=== PATIENT | male | born 1965 | race Caucasian/White ===

== ENCOUNTER 2024-09-04 15:11 | Inpatient (IN) | payer OTHER ==
[~2024-09-04] VITALS: Ht 177.8 cm; Wt 80.7 kg
[2024-09-04 17:02] LABS: BASOPHILS % 0.3 % (0.0-2.0); EOSINOPHILS % 1.8 % (0.0-5.0); HEMATOCRIT. 47.1 % (42.0-52.0); LYMPHOCYTES % 17.7 % (20.0-50.0); MEAN CORPUSCULAR VOLUME 91.4 fL (80.0-94.0); MEAN PLATELET VOLUME 8.3 fl (7.4-10.4); MONOCYTES % 9.4 % (2.0-8.0); NEUTROPHILS % 70.8 % (40.0-76.0); PLATELET 256 x1000/uL (130-400); RED BLOOD CELL COUNT 5.15 mill/uL (4.7-6.1); RED CELL DISTRIBUTION WIDTH 13.4 % (11.6-14.6); WHITE BLOOD COUNT 8.2 x1000/uL (4.5-11.0)
[2024-09-04 17:13] LABS: PROTHROMBIN TIME 10.9 sec (9.6-11.0)
[2024-09-04 17:28] LABS: CHLORIDE 108 mEq/L (98-107); POTASSIUM 3.4 mEq/L (3.5-5.1); SODIUM 141 mEq/L (136-145)
[2024-09-04 17:29] LABS: CARBON DIOXIDE 25 mEq/L (21-32)
[2024-09-04 17:30] LABS: CALCIUM 9.3 mg/dL (8.7-10.4)
[2024-09-04 17:34] LABS: GLUCOSE 132 mg/dL (70-105)
[2024-09-04 17:35] LABS: UREA NITROGEN BLOOD 13 mg/dL (9-23)
[2024-09-04 17:41] LABS: ETHANOL BLOOD < 10 mg/dL (<10)
[2024-09-04 20:38] VITALS: BP 147/62; PULSE 60; RESP 16; TEMP 36.50292; O2SAT 98
[2024-09-05] VITALS: BP 122/67; PULSE 54; RESP 18; TEMP 36.22512; O2SAT 94
[2024-09-05 01:14] VITALS: BP 142/78; PULSE 80; RESP 20; TEMP 36.696
[2024-09-05 04:00] VITALS: BP 119/70; PULSE 59; RESP 20; TEMP 36.22512; O2SAT 96
[2024-09-05 08:00] VITALS: BP 124/67; PULSE 60; RESP 20; TEMP 36.6696; O2SAT 94
[2024-09-05 12:00] VITALS: BP 100/71; PULSE 56; RESP 18; TEMP 36.44736; O2SAT 95
[2024-09-06 06:13] LABS: THYROID STIMULATING HORMONE 1.08 uIU/mL (0.55-4.78)
[2024-09-06 06:14] LABS: ALANINE AMINOTRANSFERASE 29 IU/L (10-49); ALBUMIN 3.9 g/dL (3.2-4.8); ASPARTATE AMINOTRANSFERASE 18 IU/L (<34); BILIRUBIN TOTAL 0.4 mg/dL (0.1-1.0); PROTEIN TOTAL 7.2 g/dL (6.0-8.3)
[2024-09-06 06:16] LABS: BILIRUBIN DIRECT < 0.1 mg/dL (<=3.0)
[2024-09-06 08:00] VITALS: BP 118/69; PULSE 84; RESP 18; TEMP 36.6696; O2SAT 97
[2024-09-06 12:00] VITALS: BP 118/61; PULSE 64; RESP 17; TEMP 36.114; O2SAT 97
[2024-09-06] MEDS: INFLUENZA VACCINE 05/PF 0.5 ML SYRINGE IM ONE (15:10)
[2024-09-06 16:00] VITALS: BP 114/79; PULSE 62; RESP 18; TEMP 36.114; TEMP 36.11400; O2SAT 97
[2024-09-06 16:40] LABS: VITAMIN B12 SERUM 596 pg/mL (211-911)
[2024-09-06] MEDS ORDERED: GADOTERATE MEGLUMINE 5 MMOL/10 ML VIAL IV ONE (18:04)
[2024-09-06 21:29] VITALS: BP 114/66; PULSE 60; TEMP 98.1; O2SAT 100
== END 2024-09-06 22:00 | disposition home or self-care (01) | DRG 123 ==
LOC: ER 15:11 → 5WST 17:52 → EDBEDREQ 17:54 → EDBEDREQTM 17:54 → 8WST 22:28
PROVIDERS: ADMIT Internal Medicine; ATTEND Internal Medicine
DX: H53.2 Diplopia (principal); E11.9 Type 2 diabetes mellitus without complications; G93.2 Benign intracranial hypertension; G93.89 Other specified disorders of brain
CPT/HCPCS: 36415; 70496; 70551; 70552; 71045; 80048; 80076; 80320; 82607; 83036; 84443; 85025; 85651; 86256; 90686; 93005; 93880; 99285; A9577; G0480